=== PATIENT | male | born 1975 | race Two or more races ===

== ENCOUNTER 2021-10-29 12:11 | Inpatient (IN) | payer MEDICAID ==
[~2021-10-29] VITALS: Ht 177.8 cm; Wt 102.3 kg
[2021-10-29] MEDS ORDERED: SODIUM CHLORIDE 0.9% 1,000 ML IV ONE ×2 (12:30→14:30)
[2021-10-29 12:34] LABS: BASOPHILS % (AUTO) 0.5 % (0.0-2.0); EOSINOPHILS % (AUTO) 0.1 % (1.0-6.0); HEMATOCRIT 43.3 % (41-53); LYMPHOCYTES % (AUTO) 28.7 % (22.0-44.0); MEAN CORPUSCULAR HEMOGLOBIN 30.4 pg (26.0-34.0); MEAN CORPUSCULAR HGB CONC 34.6 G/dL (31.0-37.0); MEAN CORPUSCULAR VOLUME 88 fL (80-100); MONOCYTES # (AUTO) 0.3 K/uL (0.1-1.0); MONOCYTES % (AUTO) 4.9 % (2.0-9.0); NEUTROPHILS # (AUTO) 4.7 K/uL (1.8-7.7); NEUTROPHILS % (AUTO) 65.8 % (40.0-70.0); PLATELET COUNT (AUTO) 182 K/uL (150-450); RED BLOOD CELL COUNT(AUTO) 4.93 MIL/uL (4.50-5.90); RED CELL DISTRIBUTION WIDTH 12.5 % (11.5-14.5)
[2021-10-29 12:49] LABS: ANION GAP 12 mmol/L (8-16); CALCIUM, TOTAL 8.9 mg/dL (8.8-10.5); CARBON DIOXIDE 25 mmol/L (22-29); CHLORIDE 94 mmol/L (98-107); CREATININE 1.51 mg/dL (0.60-1.30); POTASSIUM 3.9 mmol/L (3.5-5.1); SODIUM SERUM 131 mmol/L (136-145); UREA NITROGEN, BLOOD 20 mg/dL (7-18)
[2021-10-29 12:51] LABS: ALANINE AMINOTRANSFERASE 70 U/L (12-78); ALBUMIN 3.4 g/dL (3.4-5.0); ALKALINE PHOSPHATASE 204 U/L (46-116); ASPARTATE AMINOTRANSFERASE 43 U/L (15-37); BILIRUBIN,TOTAL 0.6 mg/dL (0.1-1.0); PHOSPHORUS 3.2 mg/dL (2.5-4.9); TOTAL PROTEIN, SERUM 7.6 g/dL (6.4-8.2)
[2021-10-29 12:56] LABS: GLOMERULAR FILTR. RATE CALC 50 mL/min (>60)
[2021-10-29 13:00] LABS: ACETONE,BLOOD NEGATIVE (NEGATIVE)
[2021-10-29] MEDS ORDERED: POTASSIUM CHLORIDE 20 MEQ ER TABLET PO ONE (13:15)
[2021-10-29] MEDS ORDERED: MAGNESIUM SULFATE 1 GM in DEXTROSE 5%-WATER 50 ML IV ONE (13:15)
[2021-10-29] MEDS ORDERED: POTASSIUM CHL 10 MEQ/WATER 50 ML IV ONE (13:15)
[2021-10-29 13:16] LABS: GLUCOSE,RANDOM 778 mg/dL (70-110)
[2021-10-29] MEDS ORDERED: INSULIN REGULAR, HUMAN 100 UNITS/ML IVP ONE (13:30)
[2021-10-29 14:01] LABS: GLUCOMETER DEV NAME(LOC) ERT.5; GLUCOSE,POINT OF CARE > 600 MG/DL (70-110)
[2021-10-29] MEDS ORDERED: ONDANSETRON HCL 4 MG/2 ML VIAL IVP PRN (14:30)
[2021-10-29] MEDS ORDERED: ACETAMINOPHEN 325 MG TABLET PO PRN (14:30)
[2021-10-29] MEDS ORDERED: DEXTROSE 50%-WATER 25 GM/50 ML SYRINGE IVP PRN (14:30)
[2021-10-29] MEDS ORDERED: INSULIN LISPRO 100 UNITS/ML SQ PRN (14:30)
[2021-10-29 14:55] LABS: COVID AG,FIA SOURCE NASOPHARYNGEAL
[2021-10-29] MEDS: HEPARIN SODIUM,PORCINE 5,000 UNITS/ML VIAL SQ SCH (16:14)
[2021-10-29] MEDS ORDERED: INSULIN GLARGINE,HUM.REC.ANLOG 100 UNITS/ML SQ ONE (16:15)
[2021-10-29 18:06] LABS: GLUCOMETER DEV NAME(LOC) ERT.5; GLUCOSE,POINT OF CARE 474 MG/DL (70-110)
[2021-10-29 18:34] VITALS: BP 138/88
[2021-10-29 19:50] LABS: GLUCOMETER DEV NAME(LOC) 6N.1; GLUCOSE,POINT OF CARE 395 MG/DL (70-110)
[2021-10-29 20:12] VITALS: BP 138/84
[2021-10-29] MEDS: DOCUSATE SODIUM 100 MG CAPSULE PO SCH (20:46)
[2021-10-29] MEDS: INSULIN LISPRO 100 UNITS/ML SQ PRN (20:50)
[2021-10-29] MEDS ORDERED: INSULIN GLARGINE,HUM.REC.ANLOG 100 UNITS/ML SQ SCH (21:00)
[2021-10-29 22:41] LABS: GLUCOMETER DEV NAME(LOC) 6N.1; GLUCOSE,POINT OF CARE 392 MG/DL (70-110)
[2021-10-30 04:00] VITALS: BP 139/84
[2021-10-30] MEDS: INSULIN LISPRO 100 UNITS/ML SQ PRN ×2 (05:38→11:53)
[2021-10-30 07:01] LABS: GLUCOMETER DEV NAME(LOC) 6N.1; GLUCOSE,POINT OF CARE 266 MG/DL (70-110)
[2021-10-30 07:31] LABS: ANION GAP 9 mmol/L (8-16); CALCIUM, TOTAL 8.8 mg/dL (8.8-10.5); CARBON DIOXIDE 27 mmol/L (22-29); CHLORIDE 101 mmol/L (98-107); CREATININE 1.17 mg/dL (0.60-1.30); GLUCOSE,RANDOM 246 mg/dL (70-110); POTASSIUM 3.2 mmol/L (3.5-5.1); SODIUM SERUM 137 mmol/L (136-145); UREA NITROGEN, BLOOD 14 mg/dL (7-18)
[2021-10-30 07:52] LABS: GLOMERULAR FILTR. RATE CALC > 60 mL/min (>60)
[2021-10-30 08:04] VITALS: BP 145/83
[2021-10-30] MEDS: DOCUSATE SODIUM 100 MG CAPSULE PO SCH (09:00)
[2021-10-30] MEDS ORDERED: FAMOTIDINE 20 MG TABLET PO SCH (09:00)
[2021-10-30] MEDS: HEPARIN SODIUM,PORCINE 5,000 UNITS/ML VIAL SQ SCH ×2 (09:24)
[2021-10-30] MEDS ORDERED: LISINOPRIL 10 MG TABLET PO ONE (11:45)
[2021-10-30] MEDS ORDERED: POTASSIUM CHLORIDE 20 MEQ ER TABLET PO ONE (11:45)
[2021-10-30] MEDS ORDERED: LISI-893 PO (12:43)
[2021-10-30] MEDS ORDERED: INSLAN SQ (12:44)
[2021-10-30 14:21] LABS: GLUCOMETER DEV NAME(LOC) 6N.1; GLUCOSE,POINT OF CARE 249 MG/DL (70-110)
[2021-10-31] MEDS ORDERED: LISINOPRIL 10 MG TABLET PO SCH (09:00)
== END 2021-10-30 14:45 | disposition home or self-care (01) | DRG 420 ==
LOC: EMS 12:15 → 6S 14:24
PROVIDERS: ADMIT Internal Medicine; ATTEND Internal Medicine
DX: E11.65 Type 2 diabetes mellitus with hyperglycemia (principal); N17.9 Acute kidney failure, unspecified; E86.0 Dehydration; E87.6 Hypokalemia; I10 Essential (primary) hypertension; Z20.822 Contact with and (suspected) exposure to COVID-19; E66.9 Obesity, unspecified; Z91.14 Patient's other noncompliance with medication regimen; Z91.19 Patient's noncompliance with other medical treatment and regimen; Z68.32 Body mass index [BMI] 32.0-32.9, adult
CPT/HCPCS: 80048; 80053; 82009; 82948; 82962; 83735; 84100; 84484; 85025; 93005; 99291; J1644; J1815; J3475; J3480; J7060